=== PATIENT | female | born 1985 | race Caucasian/White ===

== ENCOUNTER 2017-01-26 08:42 | Emergency (ER) | payer SELFPAY ==
[~2017-01-26 08:42] MED LIST: PROM25TA5 PO; TRAM50 PO
[2017-01-26 08:44] VITALS: BP 116/64; PULSE 100; RESP 20; TEMP 98.4; O2SAT 100
[2017-01-26] MEDS ORDERED: SODIUM CHLORIDE 0.9% FLUSH 10 ML FLUSH IV FLUSH PRN (09:45)
[2017-01-26] MEDS ORDERED: KETOROLAC TROMETHAMINE 30 MG/ML (IVP) VIAL IVP ONE (09:45)
[2017-01-26] MEDS ORDERED: ONDANSETRON HCL 4 MG/2 ML VIAL IVP ONE (09:45)
--- NOTE | 2017-01-26 09:46 | PD ---
HPI Chief Complaint: Abdominal Pain Time Seen by Provider: 09:21 Travel History International Travel<30 days: No Contact w/Intl Traveler<30days: No Traveled to known affect area: No History of Present Illness HPI The patient was seen and examined in the presence of the nurse. This patient complains of abdominal pain. Duration one day. Severity is mild. She has pain in the right upper quadrant. She has history of gallstone. No abdominal surgeries. Denies fever. She was nauseous and had one episode of diarrhea. No alleviating factors. PFSH Past Medical History Medical History: Denies Significant Hx Diminished Hearing: No Immunizations Current: Yes ?: Not LMP: 01/22/17 : 2 Para: 2 Tubal Ligation: Yes Past Surgical History Surgical History: No Previous Surgery Section: Yes Social History Alcohol Use: No Tobacco Use: No Substance Use: No Allergies-Medications (Allergen,Severity, Reaction): Coded Allergies: No Known Allergies (Verified , 01/26/17) Reported Meds & Prescriptions Reported Meds & Active Scripts Active No Active Prescriptions or Reported Medications Review of Systems General / Constitutional: No: Fever Eyes: No: Visual changes HENT: No: Headaches Cardiovascular: No: Chest Pain or Discomfort Respiratory: No: Shortness of Breath Gastrointestinal: Positive: Nausea, Diarrhea, Abdominal Pain Genitourinary: No: Dysuria Musculoskeletal: No: Pain Skin: No Rash Neurologic: No: Weakness Psychiatric: No: Depression Endocrine: No: Polydipsia Hematologic/Lymphatic: No: Easy Bruising Physical Exam Narrative GENERAL: Well-nourished, well-developed patient in no apparent distress. SKIN: Focused skin assessment reveals no rash and nodules. Skin is Warm and dry. HEAD: Atraumatic. Normocephalic. EYES: Pupils equal and round. No scleral icterus. No injection or drainage. ENT: No nasal bleeding or discharge. Mucous membranes pink and moist. NECK: Trachea midline. No JVD. CARDIOVASCULAR: Regular rate and rhythm. No murmur appreciated. RESPIRATORY: No accessory muscle use. Clear to auscultation. Breath sounds equal bilaterally. GASTROINTESTINAL: Abdomen soft, non-tender, nondistended. Hepatic and splenic margins not palpable. MUSCULOSKELETAL: No obvious deformities. No clubbing. No cyanosis. No edema. NEUROLOGICAL: Awake and alert. No obvious cranial nerve deficits. Motor grossly within normal limits. Normal speech. PSYCHIATRIC: Appropriate mood and affect; insight and judgment normal. Data Data Last Documented VS Vital Signs Date Time Temp Pulse Resp B/P Pulse Ox O2 Delivery O2 Flow Rate FiO2 01/26/17 11:13 78 16 118/62 99 01/26/17 08:44 98.4 Room Air Orders Complete Blood Count With Diff (01/26/17 09:43) Comprehensive Metabolic Panel (01/26/17 09:43) Lipase (01/26/17 09:43) Iv Access Insert/Monitor (01/26/17 09:43) NPO (01/26/17 09:43) Ondansetron Inj (Zofran Inj) (01/26/17 09:45) Sodium Chloride 0.9% Flush (Ns Flush) (01/26/17 09:45) Ketorolac Inj (Toradol Inj) (01/26/17 09:45) Ed Urine Pregnancytest Poc (01/26/17 09:43) Labs Laboratory Tests Test 01/26/17 10:00 White Blood Count 10.3 TH/MM3 Red Blood Count 4.70 MIL/MM3 Hemoglobin 14.0 GM/DL Hematocrit 41.3 % Mean Corpuscular Volume 88.0 FL Mean Corpuscular Hemoglobin 29.8 PG Mean Corpuscular Hemoglobin 33.9 % Concent Red Cell Distribution Width 12.8 % Platelet Count 291 TH/MM3 Mean Platelet Volume 8.8 FL Neutrophils (%) (Auto) 67.8 % Lymphocytes (%) (Auto) 25.5 % Monocytes (%) (Auto) 5.1 % Eosinophils (%) (Auto) 1.1 % Basophils (%) (Auto) 0.5 % Neutrophils # (Auto) 7.0 TH/MM3 Lymphocytes # (Auto) 2.6 TH/MM3 Monocytes # (Auto) 0.5 TH/MM3 Eosinophils # (Auto) 0.1 TH/MM3 Basophils # (Auto) 0.0 TH/MM3 CBC Comment DIFF FINAL Differential Comment Sodium Level 140 MEQ/L Potassium Level 4.2 MEQ/L Chloride Level 104 MEQ/L Carbon Dioxide Level 27.2 MEQ/L Anion Gap 9 MEQ/L Blood Urea Nitrogen 10 MG/DL Creatinine 0.64 MG/DL Estimat Glomerular Filtration 108 ML/MIN Rate Random Glucose 89 MG/DL Calcium Level 8.8 MG/DL Total Bilirubin 0.2 MG/DL Aspartate Amino Transf 13 U/L (AST/SGOT) Alanine Aminotransferase 24 U/L (ALT/SGPT) Alkaline Phosphatase 68 U/L Total Protein 7.9 GM/DL Albumin 4.1 GM/DL Lipase 161 U/L MDM Medical Decision Making Medical Screen Exam Complete: Yes Emergency Medical Condition: Yes Medical Record Reviewed: Yes Differential Diagnosis Biliary colic, cholecystitis, peptic ulcer disease Narrative Course I have reviewed the patient's electronic medical record. Patient ultrasound of the gallbladder in 2014 showing gallstone IV placed CBC is normal metabolic profile is normal LFT's are normal lipase is normal I gave her IV Zofran and IV Toradol Her abdomen is soft and benign and nontender and her symptoms are minimal now Recommend primary care follow-up Diagnosis Primary Impression: Abdominal pain Qualified Code: R10.10 - Pain of upper abdomen Additional Instructions: The patient was advised to follow up with their physician and return if they worsen. Med/Other Pt SpecificInfo: Other Scripts No Active Prescriptions or Reported Meds Disposition: DISCHARGE HOME Condition: Stable Tashi Mathews MD Jan 26, 2017 09:46
[2017-01-26 10:22] LABS: BASOPHIL % 0.5 % (0.0-2.0); EOSINOPHIL # 0.1 TH/MM3 (0-0.4); EOSINOPHIL % 1.1 % (0.0-4.0); HEMATOCRIT 41.3 % (35.0-46.0); HEMO FLAGS DIFF FINAL; LYMPH % 25.5 % (9.0-44.0); LYMPHOCYTE # 2.6 TH/MM3 (1.0-4.8); MEAN CORPUSCULAR HEMOGLOBIN 29.8 PG (27.0-34.0); MEAN CORPUSCULAR HGB CONC 33.9 % (32.0-36.0); MONO % 5.1 % (0.0-8.0); NEUT % 67.8 % (16.0-70.0); PLATELET COUNT 291 TH/MM3 (150-450); RED CELL DISTRIBUTION WIDTH 12.8 % (11.6-17.2); WHITE BLOOD COUNT 10.3 TH/MM3 (4.0-11.0)
[2017-01-26 10:44] LABS: ALT (GPT) 24 U/L (10-53); ANION GAP 9 MEQ/L (5-15); AST (GOT) 13 U/L (15-37); BICARBONATE 27.2 MEQ/L (21.0-32.0); BLOOD UREA NITROGEN 10 MG/DL (7-18); CHLORIDE 104 MEQ/L (98-107); GLOMERULAR FILTRATION RATE 108 ML/MIN (>89); POTASSIUM 4.2 MEQ/L (3.5-5.1); SODIUM (NA) 140 MEQ/L (136-145)
[2017-01-26 10:47] LABS: ALKALINE PHOSPHATASE 68 U/L (45-117); TOTAL BILIRUBIN ADULT 0.2 MG/DL (0.2-1.0)
[2017-01-26 11:13] VITALS: BP 118/62
== END 2017-01-26 11:22 | disposition home health service (06) ==
LOC: NEPD 08:42
DX: R10.10 Upper abdominal pain, unspecified (principal)
CPT/HCPCS: 80053; 83690; 84703; 85025; 96374; 96375; 99284; J1885; J2405

== ENCOUNTER 2017-05-06 08:05 | Emergency (ER) | payer MEDICAID ==
[~2017-05-06] VITALS: Ht 162.6 cm; Wt 65.0 kg
[2017-05-06 08:25] VITALS: BP 103/56; PULSE 73; RESP 16; TEMP 98.1; O2SAT 99
--- NOTE | 2017-05-06 08:58 | PD ---
HPI Chief Complaint: Headache Time Seen by Provider: 08:41 Travel History International Travel<30 days: No Contact w/Intl Traveler<30days: No Traveled to known affect area: No History of Present Illness HPI Patient is a 31-year-old female presents to emergency department with low pelvic pain and headache for the past day and a half. She's tried 5 doses of Tylenol at home with no relief. Denies any vaginal discharge or vaginal bleeding. Denies history of preeclampsia in the past. States the pain is on the right side of her head, she's also been having some mild nausea accompanied with it. She is concerned that something might be wrong with the baby given her pelvic pain. Last menstrual period was 01/27/17 with estimated date of delivery of 11/03/2017. 14w1d by LMP. She states that she had a ultrasound in this which was normal. PFSH Past Medical History Diminished Hearing: No Genitourinary: Yes (uti) Immunizations Current: Yes Tetanus Vaccination: > 5 Years Influenza Vaccination: No ?: LMP: 01/27/17 : 2 Para: 2 Tubal Ligation: Yes Past Surgical History Surgical History: No Previous Surgery Section: Yes Social History Alcohol Use: No Tobacco Use: No Substance Use: No Allergies-Medications (Allergen,Severity, Reaction): Coded Allergies: No Known Allergies (Verified Adverse Reaction, Unknown, 05/06/17) Reported Meds & Prescriptions Reported Meds & Active Scripts Active No Active Prescriptions or Reported Medications Review of Systems Except as stated in HPI: all other systems reviewed are Neg Physical Exam Narrative GENERAL: Well-developed well-nourished no obvious distress SKIN: Focused skin assessment warm/dry. HEAD: Atraumatic. Normocephalic. EYES: Pupils equal and round. No scleral icterus. No injection or drainage. ENT: No nasal bleeding or discharge. Mucous membranes pink and moist. NECK: Trachea midline. No JVD. CARDIOVASCULAR: Regular rate and rhythm. No murmur appreciated. RESPIRATORY: No accessory muscle use. Clear to auscultation. Breath sounds equal bilaterally. GASTROINTESTINAL: Abdomen soft, non-tender, nondistended. Hepatic and splenic margins not palpable. GENITOURINARY: Exam was performed with female nurse car salesperson present all times. Minimal physiologic discharge of , no bimanual tenderness no cervical motion tenderness, cervix is closed. Grossly normal external female genitalia. MUSCULOSKELETAL: No obvious deformities. No clubbing. No cyanosis. No edema. NEUROLOGICAL: Awake and alert. No obvious cranial nerve deficits. Motor grossly within normal limits. Normal speech. PSYCHIATRIC: Appropriate mood and affect; insight and judgment normal. Data Data Last Documented VS Vital Signs Date Time Temp Pulse Resp B/P (MAP) Pulse Ox O2 Delivery O2 Flow Rate FiO2 05/06/17 08:38 76 16 99 Room Air 05/06/17 08:25 98.1 103/56 (72) Orders Orders Urinalysis - C+S If Indicated (05/06/17 08:55) Wet Prep Profile (05/06/17 08:55) Gc And Chlamydia Pcr (05/06/17 08:55) Acetaminophen (Tylenol) (05/06/17 09:00) Ed Poc Ultrasound (05/06/17 ) Ed Discharge Order (05/06/17 10:26) Labs Laboratory Tests Test 05/06/17 08:50 05/06/17 09:30 Urine Color YELLOW Urine Turbidity CLEAR Urine pH 7.0 Urine Specific [place] 1.014 Urine Protein NEG mg/dL Urine Glucose (UA) NEG mg/dL Urine Ketones NEG mg/dL Urine Occult Blood NEG Urine Nitrite NEG Urine Bilirubin NEG Urine Urobilinogen LESS THAN 2.0 MG/DL Urine Leukocyte Esterase TRACE Urine RBC LESS THAN 1 /hpf Urine WBC LESS THAN 1 /hpf Urine Squamous Epithelial Cells 4 /hpf Urine Mucus FEW /lpf Microscopic Urinalysis Comment CULT NOT INDICATED Clue Cells (Wet Prep) NONE SEEN Vaginal Trichomonas (Wet Prep) NONE SEEN Vaginal Yeast (Wet Prep) NONE SEEN Chlamydia trachomatis DNA (PCR) NOT DETECTED Neisseria gonorrhoeae DNA (PCR) NOT DETECTED MDM Medical Decision Making Medical Screen Exam Complete: Yes Emergency Medical Condition: Yes Differential Diagnosis Ectopic seems unlikely, round ligament pain, UTI, DVT, CVA, preeclampsia is a possibility. Narrative Course Patient roomed in emergency department, her headache and her abdominal symptoms. Apollo is considered, no pedal edema, no visual disturbance no proteinuria blood pressure is within normal limits.(Grupo preeclampsia differential diagnoses. Bedside ultrasound was obtained and is reassuring and this seemed to reassure mother quite a bit and her headache was feeling better after Tylenol. Urinalysis negative, wet prep negative. GC and CT probe was sent. This point I think she is stable for discharge recommend he continue vitamins and follow up with her INVENTORY WORKER. She verbalized understanding and agreement. Discussed return to ED criteria. Procedures Procedure Narrative Bedside ultrasound abdomen: Transabdominal views were obtained of the uterus shows a single intrauterine positive motion and heart tones in the 150s by M-mode, approximately 15 weeks 2 days by crown-rump length and biparietal diameter. No gross deformities. Diagnosis Primary Impression: Pelvic pain affecting Qualified Codes: O26.892 - Other specified related conditions, second trimester; R10.2 - Pelvic and perineal pain Additional Instructions: Call your OBGYN today. Scripts No Active Prescriptions or Reported Meds Disposition: 01 DISCHARGE HOME Condition: Stable Mitch Whitehead MD May 06, 2017 08:58
[2017-05-06] MEDS ORDERED: ACETAMINOPHEN 500 MG CPLT PO ONE (09:00)
[2017-05-06 09:56] LABS: BLOOD, URINE NEG (NEG); COMMENT (UR) CULT NOT INDICATED; CULTURE IF INDICATED CULT NOT INDICATED; GLUCOSE,URINE NEG (NEG); KETONE, URINE NEG (NEG); MUCUS URINE FEW /lpf (OCC); NITRITE,URINE NEG (NEG); SQUAMOUS EPITHELIAL CELL URINE 4 /hpf (0-5); URINE COLOR YELLOW (YELLW/STRAW)
[2017-05-06 14:26] LABS: CHLAMYDIA PCR NOT DETECTED (NOT DETECT); NEISSERIA PCR NOT DETECTED (NOT DETECT)
== END 2017-05-06 10:43 | disposition home or self-care (01) ==
LOC: NEPE 08:05
DX: O26.892 Other specified pregnancy related conditions, second trimester (principal); R10.2 Pelvic and perineal pain; R51 Headache; R11.0 Nausea; Z3A.15 15 weeks gestation of pregnancy
CPT/HCPCS: 81001; 87210; 87491; 87591; 99284

== ENCOUNTER 2017-09-21 23:31 | Emergency (ER) | payer MEDICAID ==
[2017-09-22] MEDS ORDERED: MEPERIDINE HCL 50 MG/ML VIAL IM ONE (00:30)
--- NOTE | 2017-09-22 00:38 | PD ---
HPI Chief Complaint Upper abdominal pain for approximately 4 hours Date Seen: Sep 22, 2017 Time Seen: 00:22 Travel History International Travel<30 Days: No Contact w/Intl Traveler<30Days: No Known Affected Area: No History of Present Illness HPI Patient is 32-year-old 34 weeks goes to [facility] for care and presents complaining of upper abdominal pain for approximately 4 hours. Patient's had this pain in the past on and off for 2 years and was told she had gallstones prior to . She denies eating greasy or fatty diet recently, she does not speak [place] we had a nurse that is Lao-speaking able to discuss with her. She has no obstetric complaints no contractions, leakage, bleeding, heart rate tracing is reactive and no contractions are seen Weeks Gestation: 34 Para: 2 : 3 History Past Medical History Narrative Medical History of gallstones Obstetric History Obstetric History 2 vaginal deliveries Social History Alcohol Use: No Tobacco Use: No Substance Abuse: No Allergies-Medications (Allergen,Severity, Reaction): Coded Allergies: No Known Allergies (Verified Adverse Reaction, Unknown, 05/06/17) Home Meds No Active Prescriptions or Reported Meds Review of Systems General / Constitutional: No: Fever, Weight Gain, Chills, Other Eyes: No: Diploplia, Blurred Vision, Visual changes, Pain, Photophobia HENT: No: Headaches, Vertigo, Lightheadedness Cardiovascular: No: Irregular Rhythm, Chest Pain or Discomfort, Palpitations, Tachycardia, Syncope, Varicosities, Edema, Cyanosis Respiratory: No: Cough, Short of Breath, Other Gastrointestinal: Abdominal Pain, No: Nausea, Vomiting, Diarrhea Genitourinary: No: Decreased Urinary Output, Oliguria Musculoskeletal: No: Limited ROM, Weakness, Cramping, Edema, Pain Skin: No Rash, No Itching, No Dryness, No Lumps, No Change in Pigmentation, No Change in Nails, No Alopecia, No Lesions Neurologic: No: Weakness, Dizziness, Syncope, Focal Abnormalities, Coordination Problem, Headache, Slurred Speech, Seizures Psychiatric: No: Depression, Suicidal Ideations, Homicidal Ideation Endocrine: No: Heat Intolerance, Cold Intolerance, Polydipsia, Polyuria, Other Physical Exam Narrative GENERAL: Well-nourished, well-developed patient. SKIN: Warm and dry. HEAD: Normocephalic and atraumatic. EYES: No scleral icterus. No injection or drainage. ENT: No nasal drainage noted. Mucous membranes pink. Airway patent. NECK: Supple, trachea midline. No JVD. CARDIOVASCULAR: Regular rate and rhythm without murmurs, gallops, or rubs. RESPIRATORY: Breath sounds equal bilaterally. No accessory muscle use. BREASTS: Bilateral exam showed no masses , no retractions, no nipple discharge. ABDOMEN/GI: Abdomen soft, tender in upper quads R>L , bowel sounds present, no rebound, no guarding or mass Gravid to [34-] weeks size Fundal Height: [34-] GENITOURINARY: External Genitalia: intact and normal in appearance BUS glands: [-] Cervix: [-post] Dilatation: [0-] Effacement: [-0] Station: [-3] Membranes: [intact ] Uterine Contractions: [none-] FHT's: Category: [1-] Baseline: [122-] Reactive: [R-] Variability: [mod-] Decels: [none-] EXTREMITIES: No cyanosis or edema. BACK: Nontender without obvious deformity. No CVA tenderness. NEUROLOGICAL: Awake and alert. Motor and sensory grossly within normal limits. Five out of 5 muscle strength in all muscle groups. Normal speech. Data Data Orders Orders Meperidine Inj (Demerol Inj) (09/22/17 00:30) Promethazine Inj (Phenergan Inj) (09/22/17 00:45) Attending Discharge Order (09/22/17 ) MDM Interpretation(s) Patient is 32-year-old at 34 weeks who has upper abdominal pain consistent with gallbladder colic and she has a history of gallstones in the past. Patient states that she has had this pain in the past is gone to the emergency room days given her shot the pain would go away and that was it has not bothered her for approximately a year until tonight, she had no nausea vomiting and has no other obstetric issue Plan Plan the patient I am shot of Demerol Phenergan, encourage her to be on a low residue bland diet and to follow-up with her OB provider and return to the hospital if she has worsening of her symptoms Diagnosis Diagnosis: Primary Impression: Abdominal pain Additional Impression: 34 weeks gestation of Disposition: DISCHARGE HOME Condition: Stable Scripts No Active Prescriptions or Reported Meds Moralez,Bill L. II MD Sep 22, 2017 00:38
[2017-09-22] MEDS ORDERED: PROMETHAZINE INJ 25 MG/ML VIAL IM ONE (00:45)
== END 2017-09-22 01:13 | disposition home or self-care (01) ==
LOC: HOBED 23:31
DX: O26.893 Other specified pregnancy related conditions, third trimester (principal); R10.10 Upper abdominal pain, unspecified; Z3A.34 34 weeks gestation of pregnancy
CPT/HCPCS: 59025; 96372; 99283; J2175; J2550

== ENCOUNTER 2017-10-27 02:56 | Inpatient (IN) | payer MEDICAID ==
[2017-10-27] VITALS (42 sets, daily range): BP systolic 73–125; BP diastolic 35–103; PULSE 56–140; RESP 16–20; TEMP 97.9–98.8; O2SAT 100
[2017-10-27] MEDS ORDERED: LACTATED RINGER'S 1000 ML INJ 1,000 ML IV PRN (03:38)
[2017-10-27] MEDS ORDERED: LACTATED RINGER'S 1000 ML INJ 1,000 ML IV SCH (03:38)
--- NOTE | 2017-10-27 03:38 | PD ---
HPI Chief Complaint Contractions Date Seen: October 27, 2017 Time Seen: 03:34 Travel History International Travel<30 Days: No Contact w/Intl Traveler<30Days: No Known Affected Area: No History of Present Illness HPI 32-year-old comes in at 39 weeks 4 days complaining of contractions that began at 01 100. Patient denies any issues during her and she is presently not complaining of any vaginal discharge bleeding or ruptured membranes. Patient has good movement. Sees [facility] for care. Weeks Gestation: 39 Para: 2 : 3 History Past Medical History Medical History: Denies Significant Hx Obstetric History Obstetric History x 2 Past Surgical History Surgical History: No Previous Surgery Family History Family History: Negative Social History Alcohol Use: No Tobacco Use: No Substance Abuse: No Allergies-Medications (Allergen,Severity, Reaction): Coded Allergies: No Known Allergies (Verified Adverse Reaction, Unknown, 05/06/17) Home Meds No Active Prescriptions or Reported Meds Review of Systems Except as stated in HPI: all other systems reviewed are Neg Physical Exam Narrative GENERAL: Well-nourished, well-developed patient. SKIN: Warm and dry. HEAD: Normocephalic and atraumatic. EYES: No scleral icterus. No injection or drainage. ENT: No nasal drainage noted. Mucous membranes pink. Airway patent. NECK: Supple, trachea midline. No JVD. CARDIOVASCULAR: Regular rate and rhythm without murmurs, gallops, or rubs. RESPIRATORY: Breath sounds equal bilaterally. No accessory muscle use. ABDOMEN/GI: Abdomen soft, non-tender, bowel sounds present, no rebound, no guarding Gravid to [-39] weeks size Fundal Height: [-] GENITOURINARY: External Genitalia: intact and normal in appearance BUS glands: [Normal-] Cervix: [Posterior-] Dilatation: [-3] Effacement: [-80] Station: [-2-] Presentation: [-Vertex] Membranes: [intact or ruptured] intact Uterine Contractions: [-] Every 3-5 minutes FHT's: Category: [-] 1 Baseline: [-] 140 Reactive: [-] Moderate Variability: [-] Moderate Decels: [-] Absent EXTREMITIES: No cyanosis or edema. BACK: Nontender without obvious deformity. No CVA tenderness. NEUROLOGICAL: Awake and alert. Motor and sensory grossly within normal limits. Five out of 5 muscle strength in all muscle groups. Normal speech. Data Data Vital Signs Reviewed: Yes Group B Strep: Negative MDM Medical Record Reviewed: Yes Plan 32-year-old at 39 weeks 4 days in early labor Admit to L&D Diagnosis Diagnosis: Primary Impression: 39 weeks gestation of Additional Impression: Irregular uterine contractions Scripts No Active Prescriptions or Reported Meds Alexa Greene MD October 27, 2017 03:38
[2017-10-27] MEDS ORDERED: ONDANSETRON HCL 4 MG/2 ML VIAL IV PUSH PRN (03:45)
[2017-10-27] MEDS ORDERED: LIDOCAINE HCL 1% 50 ML VIAL I-DERMAL PRN (03:45)
[2017-10-27] MEDS ORDERED: LIDOCAINE HCL 1% 50 ML VIAL INFIL PRN (03:45)
[2017-10-27] MEDS ORDERED: OXYTOCIN 30 UNITS-500ML PREMIX 500 ML IV ONE (03:45)
[2017-10-27] MEDS ORDERED: CITRIC ACID-SODIUM CITRATE LIQ 30 ML UDC PO SCH (03:45)
[2017-10-27] MEDS ORDERED: MINERAL OIL 10 ML VIAL TOPICAL PRN (03:45)
[2017-10-27] MEDS ORDERED: SODIUM CHLORID 0.9% 500 ML INJ 500 ML IV PRN (03:45)
[2017-10-27] MEDS ORDERED: SODIUM CHLOR 0.9% 1000 ML INJ 1,000 ML IV PRN (03:58)
[2017-10-27 04:22] LABS: AUTOMATED NEUTROPHIL # 6.9 TH/MM3 (1.8-7.7); BASOPHIL % 0.4 % (0.0-2.0); EOSINOPHIL # 0.1 TH/MM3 (0-0.4); EOSINOPHIL % 0.8 % (0.0-4.0); HEMATOCRIT 34.9 % (35.0-46.0); LYMPHOCYTE # 3.2 TH/MM3 (1.0-4.8); MEAN CELL VOLUME 85.7 FL (80.0-100.0); MEAN CORPUSCULAR HEMOGLOBIN 29.4 PG (27.0-34.0); MEAN CORPUSCULAR HGB CONC 34.4 % (32.0-36.0); MEAN PLATELET VOLUME 9.8 FL (7.0-11.0); MONO % 6.1 % (0.0-8.0); MONOCYTE # 0.7 TH/MM3 (0-0.9); NEUT % 63.7 % (16.0-70.0); PLATELET COUNT 235 TH/MM3 (150-450); RED BLOOD COUNT 4.08 MIL/MM3 (4.00-5.30); RED CELL DISTRIBUTION WIDTH 14.2 % (11.6-17.2); WHITE BLOOD COUNT 10.9 TH/MM3 (4.0-11.0)
[2017-10-27] MEDS ORDERED: fentaNYL 2MCG-BUPIV 0.125% INJ 100 ML ONE (05:22)
[2017-10-27] MEDS ORDERED: ePHEDrine/NS 25 MG/5 ML SYRINGE ONE (05:22)
[2017-10-27] MEDS ORDERED: LIDOCAINE 2%/EPINEPHrine 1:100,000 20ML MDV ONE (05:36)
[2017-10-27] MEDS ORDERED: LIDOCAINE HCL 1% PF 5 ML AMPULE ONE (05:36)
[2017-10-27] MEDS ORDERED: fentaNYL 2MCG-BUPIV 0.125% 100 ML EPIDURAL PRN (06:15)
[2017-10-27] MEDS ORDERED: ePHEDrine/NS 25 MG/5 ML SYRINGE IV PUSH PRN (06:15)
[2017-10-27] MEDS ORDERED: DO NOT ADMINISTER ANTICOAGULANTS PRN (06:15)
[2017-10-27] MEDS ORDERED: NO SYSTEM NARCOTICS PRN (06:15)
--- NOTE | 2017-10-27 08:59 | PD.LABORPN ---
Subjective Subjective [employer] Ski Instructor used Patient doing well, no complaints AROM at 8:[address] Greene Objective Vital Signs Vital Signs Date Time Temp Pulse Resp B/P (MAP) Pulse Ox O2 Delivery O2 Flow Rate FiO2 10/27/17 08:08 16 10/27/17 07:45 98.4 16 10/27/17 07:31 64 102/60 (74) 10/27/17 07:15 16 10/27/17 07:00 60 91/44 (60) 10/27/17 06:31 59 99/49 (66) 10/27/17 06:04 98.8 20 10/27/17 06:01 66 106/55 (72) 10/27/17 05:54 76 108/57 (74) 10/27/17 05:52 72 91/63 (72) 10/27/17 05:50 78 124/103 (110) 10/27/17 05:39 20 10/27/17 05:00 60 125/78 (94) 10/27/17 04:29 75 123/80 (94) Objective Pelvic Exam: Cervix: midposition Dilatation: 6cm Effacement: 80 Station: -2 Presentation: vetex Membranes: AROM Uterine Contractions: every 5 minutes FHT's: Category: 1 Baseline: 130s Reactive: yes Variability: moderate Decels: none Weeks Gestation: 39 Assessment/Plan Assessment and Plan 32 yr old Female at 39/4 weeks in labor -Intrauterine , category 1, reassuring -Cervix: 6cm, 80%, -2, vertex, midposition -s/p AROM and epidural -Will start pitocin 1-1-30 -GBS negative -Anticipate vaginal delivery sdw Aisha Ibarra MD R1 October 27, 2017 08:59
[2017-10-27] MEDS ORDERED: OXYTOCIN 30 UNITS-500ML PREMIX 500 ML IV PRN ×2 (09:00→12:00)
--- NOTE | 2017-10-27 13:04 | PD.OB.DELI ---
Weeks gestation: 39 Anesthesia: Epidural Episiotomy: None Vaginal Delivery: Normal, Spontaneous Presentation: Occiput anterior Nuchal Cord: None Delayed cord clamping (45 sec): Yes : Male Delivery date: October 27, 2017 Delivery time: 12:33 One Minute : 9 Five Minute : 9 Weight: 3360g Placenta: Spontaneous delivery Laceration: No lacerations Estimated blood loss: 100cc Additional Information Delivery by Dr. Donnelly Supervised by Dr. Kirt Donnelly,Aisha Apple MD R1 October 27, 2017 13:03
[2017-10-27] MEDS ORDERED: ONDANSETRON ODT 4 MG TAB PO PRN (13:15)
[2017-10-27] MEDS ORDERED: BENZOCAINE 20% TOPICAL SPRAY 60 ML CAN TOPICAL PRN (13:15)
[2017-10-27] MEDS ORDERED: OXYTOCIN 30 UNITS-500ML PREMIX 500 ML IV SCH (13:15)
[2017-10-27] MEDS ORDERED: WITCH HAZEL 50%/GLYCERIN 12.5% 40 PAD JAR TOPICAL PRN (13:15)
[2017-10-27] MEDS ORDERED: SODIUM CHLORIDE 0.9% FLUSH 10 ML FLUSH IV FLUSH PRN (13:15)
[2017-10-27] MEDS ORDERED: ZOLPIDEM TARTRATE 5 MG TAB PO PRN (13:15)
[2017-10-27] MEDS ORDERED: DOCUSATE SODIUM 50 MG/SENNA 8.6 MG TAB PO PRN (13:15)
[2017-10-27] MEDS ORDERED: ALUMINUM/MAGNESIUM/SIMETH 30 ML CUP PO PRN (13:15)
[2017-10-27] MEDS ORDERED: oxyCODONE/ACETAMINOPHEN 5 MG/325 MG TAB PO PRN ×2 (13:15)
[2017-10-27] MEDS ORDERED: SODIUM CHLORIDE 0.9% FLUSH 10 ML FLUSH IV FLUSH SCH (13:15)
[2017-10-27] MEDS ORDERED: DIPHTH/TETANUS/ACEL PERTUSSIS (BOOSTER) 0.5 ML VIAL/PFS IM ONE (16:00)
[2017-10-27] MEDS ORDERED: MEASLES, MUMPS, RUBELLA VACCINE 0.5 ML VIAL SQ ONE (16:00)
[2017-10-27] MEDS: ACETAMINOPHEN 325 MG TAB PO PRN (19:59)
[2017-10-27] MEDS: IBUPROFEN 800 MG TAB PO PRN (19:59)
[2017-10-28] MEDS: IBUPROFEN 800 MG TAB PO PRN ×3 (03:28→20:10)
[2017-10-28] MEDS: ACETAMINOPHEN 325 MG TAB PO PRN ×3 (03:28→20:10)
--- NOTE | 2017-10-28 08:30 | HHI.OB ---
Subjective Remarks 32 year old female s/p at 39 wks gestation, PPD1. AFVSS. Patient reports she is feeling well. Bleeding is decreasing and pain is well- controlled. She is breast feeding and bonding well with baby. Ambulating without difficulties. She is tolerating a diet without nausea or vomiting. She has not had a bowel movement. She has passed gas. Denies chest pain, dysuria, shortness of breath, or calf pain. Objective Vitals/I&O Vital Signs Date Time Temp Pulse Resp B/P (MAP) Pulse Ox O2 Delivery O2 Flow Rate FiO2 10/27/17 20:00 98.2 67 18 100 10/27/17 20:00 107/63 (78) 10/27/17 15:45 98.5 74 16 121/55 (77) 10/27/17 14:45 64 119/71 (87) 10/27/17 14:31 65 104/59 (74) 10/27/17 14:15 18 10/27/17 14:15 60 113/58 (76) 10/27/17 14:01 64 114/69 (84) 10/27/17 14:00 16 10/27/17 13:46 67 120/65 (83) 10/27/17 13:45 16 10/27/17 13:31 65 118/72 (87) 10/27/17 13:30 18 10/27/17 13:18 140 75/35 (48) 10/27/17 13:16 68 73/52 (59) 10/27/17 13:15 97.9 10/27/17 13:06 18 10/27/17 13:01 101 113/62 (79) 10/27/17 12:31 73 111/65 (80) 10/27/17 12:01 67 122/69 (86) 10/27/17 11:31 85 116/74 (88) 10/27/17 11:15 20 10/27/17 11:15 98.2 10/27/17 11:01 78 95/65 (75) 10/27/17 10:31 62 107/53 (71) 10/27/17 10:01 65 110/65 (80) 10/27/17 09:45 98.0 18 10/27/17 09:31 66 109/69 (82) 10/27/17 09:01 63 111/66 (81) 10/27/17 08:31 56 96/55 (69) Objective Remarks GENERAL: Well-nourished, well-developed patient. CARDIOVASCULAR: Regular rate and rhythm without murmurs, gallops, or rubs. RESPIRATORY: Breath sounds equal bilaterally. No accessory muscle use. ABDOMEN/GI: Abdomen soft, non-tender. Fundus: Firm, non-tender at umbilicus. GENITOURINARY: Light to moderate bleeding. EXTREMITIES: No cyanosis or edema, non-tender, without signs of DVT. Medications and IVs Current Medications Medications (Trade) Dose Ordered Sig/Juancarlos Route Start Time Stop Time Status Last Admin (Xylocaine 1% Inj (50 ml)) 0.1 ml UNSCH X1 PRN I-DERMAL 10/27/17 03:45 10/30/17 03:44 (Bicitra Liq) 30 ml [employer]OR PO 10/27/17 03:45 10/31/17 03:44 (Xylocaine 1% Inj (50 ml)) 10 ml UNSCH X1 PRN INFIL 10/27/17 03:45 10/29/17 03:44 (Muri-Lube Oil) 10 ml UNSCH PRN TOPICAL 10/27/17 03:45 (NS Flush) 2 ml BID IV FLUSH 10/27/17 13:15 (NS Flush) 2 ml UNSCH PRN IV FLUSH 10/27/17 13:15 (Tylenol) 650 mg Q4H PRN PO 10/27/17 13:15 10/28/17 03:28 (Motrin) 800 mg Q8H PRN PO 10/27/17 13:15 10/28/17 03:28 (Percocet 5-325 Mg) 1 tab Q4H PRN PO 10/27/17 13:15 (Percocet 5-325 Mg) 2 tab Q4H PRN PO 10/27/17 13:15 (Americaine 20% Top Spr) 1 spray Q4H PRN TOPICAL 10/27/17 13:15 (Tucks Pads) 1 applic QID PRN TOPICAL 10/27/17 13:15 (Heike-Colace) 2 tab Q12H PRN PO 10/27/17 13:15 (Ambien) 5 mg HS PRN PO 10/27/17 13:15 (Mag-Al Plus Susp Liq) 15 ml Q8H PRN PO 10/27/17 13:15 (Zofran Odt) 4 mg Q6H PRN PO 10/27/17 13:15 Assessment/Plan Assessment and Plan 32 yo female s/p , PPD1. - AFVSS - Continue routine care - Motrin PRN pain - Encourage OOB - Pelvic rest x 6 wks. - Contraception: Undecided - Anticipate D/C today or tomorrow Aisha Dorsey Dr., MD R1 October 28, 2017 08:30
[2017-10-28 09:00] VITALS: BP 97/62; PULSE 66; RESP 18; TEMP 97.9
[2017-10-28 19:27] VITALS: BP 118/61; PULSE 65; RESP 18; TEMP 98.2
[2017-10-29 07:50] VITALS: BP 112/71; PULSE 59; RESP 18; TEMP 98.1
--- NOTE | 2017-10-29 09:13 | HHI.OB ---
Subjective Remarks 32 year old female s/p at 39 wks gestation, PPD2. AFVSS. Patient reports she is feeling well. Bleeding is decreasing and pain is well- controlled. She is formula fedding and bonding well with baby. Ambulating without difficulties. She is tolerating a diet without nausea or vomiting. She has not had a bowel movement. She has passed gas. Denies chest pain, dysuria, shortness of breath, or calf pain. Objective Vitals/I&O Vital Signs Date Time Temp Pulse Resp B/P (MAP) Pulse Ox O2 Delivery O2 Flow Rate FiO2 10/28/17 19:27 98.2 65 18 118/61 (80) Objective Remarks GENERAL: Well-nourished, well-developed patient. CARDIOVASCULAR: Regular rate and rhythm without murmurs, gallops, or rubs. RESPIRATORY: Breath sounds equal bilaterally. No accessory muscle use. ABDOMEN/GI: Abdomen soft, non-tender. Fundus: Firm, non-tender at umbilicus. GENITOURINARY: Light to moderate bleeding. EXTREMITIES: No cyanosis or edema, non-tender, without signs of DVT. Medications and IVs Current Medications Medications (Trade) Dose Ordered Sig/Juancarlos Route Start Time Stop Time Status Last Admin (Xylocaine 1% Inj (50 ml)) 0.1 ml UNSCH X1 PRN I-DERMAL 10/27/17 03:45 10/30/17 03:44 (Bicitra Liq) 30 ml STEEL PICKLER PO 10/27/17 03:45 10/31/17 03:44 (Muri-Lube Oil) 10 ml UNSCH PRN TOPICAL 10/27/17 03:45 (NS Flush) 2 ml BID IV FLUSH 10/27/17 13:15 (NS Flush) 2 ml UNSCH PRN IV FLUSH 10/27/17 13:15 (Tylenol) 650 mg Q4H PRN PO 10/27/17 13:15 10/28/17 20:10 (Motrin) 800 mg Q8H PRN PO 10/27/17 13:15 10/28/17 20:10 (Percocet 5-325 Mg) 1 tab Q4H PRN PO 10/27/17 13:15 (Percocet 5-325 Mg) 2 tab Q4H PRN PO 10/27/17 13:15 (Americaine 20% Top Spr) 1 spray Q4H PRN TOPICAL 10/27/17 13:15 (Tucks Pads) 1 applic QID PRN TOPICAL 10/27/17 13:15 (Heike-Colace) 2 tab Q12H PRN PO 10/27/17 13:15 (Ambien) 5 mg HS PRN PO 10/27/17 13:15 (Mag-Al Plus Susp Liq) 15 ml Q8H PRN PO 10/27/17 13:15 (Zofran Odt) 4 mg Q6H PRN PO 10/27/17 13:15 Assessment/Plan Assessment and Plan 32 yo female s/p , PPD2. - AFVSS - Continue routine care - Motrin PRN pain - Encourage OOB - Pelvic rest x 6 wks. - Contraception: Undecided - Anticipate D/C today dw Aisha Vizcaino MD R1 October 29, 2017 09:13
[2017-10-29] MEDS ORDERED: PERI PO (09:18)
[2017-10-29] MEDS ORDERED: IBUP1TAB7 PO (09:18)
--- NOTE | 2017-10-29 09:18 | HHI.DCPOC ---
Discharge Care Plan Diagnosis: (1) Normal vaginal delivery Report Symptoms to Your Doctor -Temperature above 100.5 degrees -Redness, of incision or excessive or foul smelling drainage -Unusual pain or calf pain -Increased vaginal bleeding -Painful or difficulty urinating -Feelings of extreme sadness or anxiety after 2 weeks Goals to Promote Your Health * To prevent worsening of your condition and complications * To maintain your health at the optimal level Directions to Meet Your Goals Take your medications as prescribed Follow your dietary instruction Follow activity as directed Ensure plenty of rest for recovery Drink fluids for hydration Keep your appointments as scheduled Take your immunizations and boosters as scheduled If your symptoms worsen call your PCP, if no PCP go to Urgent Care Center or Emergency Room Smoking is Dangerous to Your Health. Avoid second hand smoke Call the 24-hour crisis hotline for domestic abuse at Aisha Donnelly MD R1 October 29, 2017 09:18
== END 2017-10-29 12:11 | disposition home or self-care (01) | DRG 775 ==
LOC: HOBED 02:56 → H2EA 03:19 → H1EA 15:16
PROVIDERS: ADMIT Obstetrics & Gynecology Obstetrics; ATTEND Obstetrics & Gynecology Obstetrics
PROC: 10E0XZZ Delivery of Products of Conception, External Approach (ICD-10-PCS; principal; 2017-10-27)
PROC: 10907ZC Drainage of Amniotic Fluid, Therapeutic from Products of Conception, Via Natural or Artificial Opening (ICD-10-PCS; 2017-10-27)
PROC: 00HU33Z Insertion of Infusion Device into Spinal Canal, Percutaneous Approach (ICD-10-PCS; 2017-10-27)
PROC: 3E0R3BZ Introduction of Anesthetic Agent into Spinal Canal, Percutaneous Approach (ICD-10-PCS; 2017-10-27)
DX: O80 Encounter for full-term uncomplicated delivery (principal); Z23 Encounter for immunization; Z3A.39 39 weeks gestation of pregnancy; Z37.0 Single live birth
CPT/HCPCS: 59025; 80307; 85025; 90715; 99283; G0481; J2405; J2590; J7120